=== PATIENT | female | born 2000 | race Two or more races ===

== ENCOUNTER 2024-11-27 19:57 | Emergency (ER) | payer MEDICAID, SELFPAY ==
[2024-11-27 20:17] VITALS: BP 130/89; PULSE 125; RESP 18; TEMP 38.7; O2SAT 99; BMI 40.2
--- NOTE | 2024-11-27 20:49 | EDNOTE_ITS ---
ED Fever RME/HPI General Chief Complaint: Fever Stated Complaint: FEVER, RUQ ABD PAIN, SOB, LIGHT HEADED Time Seen by Provider: 11/27/24 20:39 Arrival date/time: 11/27/24 19:57 RME / HPI RME / HPI Narrative: Dr. Patel?s Main ED Evaluation: 24yo female with a recent gastric sleeve on 11/23/24 at [facility] presents to the ED for complaints of epigastric pain and fever. Patient states she's been having sharp epigastric pain that radiates to her RUQ since yesterday. Patient states she developed a fever and chills yesterday, reporting she felt generally weak today, so she came in for evaluation. Patient denies any UTI symptoms, diarrhea, constipation, N/V or any other associated symptoms. Related Data Allergies Allergy/AdvReac Type Severity Reaction Status Date / Time morphine Allergy Verified 11/27/24 20:05 Review of Systems Review of Systems Systems Reviewed: All systems reviewed, normal except as documented Physical Exam Narrative Physical exam: GENERAL APPEARANCE: alert and oriented x 4, well-developed, well-nourished, no acute distress VITALS: All vitals were reviewed and the pulse ox is 99% on room air, which is normal according to my interpretation. HEENT: Normocephalic, atraumatic; pupils equal, round, reactive to light; EOMI; mucous membranes pink, moist; oropharynx clear NECK: Supple LUNGS: CTABL; no wheezes, no rales, no rhonchi HEART: Regular rate, regular rhythm; normal S1, S2; no murmurs ABDOMEN: non distended; normal BS; soft, RUQ tenderness, no guarding, no rebound; no masses, no organomegaly, no hernia BACK: no CVA tenderness EXTREMITIES: atraumatic; no edema NEUROLOGIC: awake; alert and oriented x4; cranial nerves II-XII grossly intact; no focal sensory or motor deficits PSYCHIATRIC: appropriate mood and affect SKIN: warm, dry, normal color; no rashes; multiple 1 cm abdominal surgical scars that are healing with minimal surrounding ecchymosis, no drainage or erythema noted Course Course Course Narrative: 2053: Sepsis alert initiated. Orders made at this time are congruent with ED Adult Sepsis Order List. Re-evaluation is to be completed. 2135: NS IVF started. 40: Sepsis reassessment performed consisting of lab review, vitals, physical exam including auscultation of heart, lungs, and visual evaluation of capillary refills, mucosal membranes and extremities. Patient met SIRS criteria however lactic, WBC, and pro mansoor are all within normal range. Reassessment complete, patient is not septic. Quality Measures Possible source: GI tract/intra-abdominal Blood cultures ordered: yes Antibiotic ordered: Yes Pertinent labs: 11/27/24 21:06 Lactic Acid 1.0 mMol/L (0.4-2.0) Procalcitonin 0.08 ng/ml (0.0-0.49) sepsis Orders Category Date Time Status Bedside COVID-19 Antigen Test NOW Care 11/28/24 00:54 Completed Bedside Influenza A&B Antigen Test NOW Care 11/28/24 00:[address] Screening NOW Care 11/27/24 20:[address] abdomen pelvis w con Stat Exams 11/27/24 20:50 Completed US abdomen limited Stat Exams 11/27/24 20:50 Completed Blood Culture (Lab) Stat Lab 11/27/24 21:12 Received CBC Stat Lab 11/27/24 21:06 Completed Comprehensive Metabolic Panel Stat Lab 11/27/24 21:06 Completed Lactate (Lactic Acid) Stat Lab 11/27/24 21:06 Completed Lipase Stat Lab 11/27/24 21:06 Completed Magnesium Stat Lab 11/27/24 21:06 Completed Procalcitonin Stat Lab 11/27/24 21:06 Completed Urinalysis Stat Lab 11/27/24 23:42 Completed Urine Culture Stat Lab 11/27/24 20:50 Received Acetaminophen Tab [Tylenol ES Tab] Med 11/27/24 20:55 Discontinued 1,000 mg PO X1 ONE Piper/Tazo 3.375 gm Premix [Zosyn] Med 11/27/24 20:53 Discontinued 3.375 gm in 50 ml IV X1 Sodium Chloride 0.9% 1000 ml [Ns] 1,000 ml Med 11/27/24 20:55 Discontinued IV 999 mls/hr Reevaluation(s) Reevaluation #1: Discussed results with the patient at bedside. Patient states she does not have a follow-up appointment with her surgeon until 12/04/24. I gave the patient strict return precautions and she verbalized understanding. Patient is stable to be discharged home. Time: 00:51 Vital Signs Vital signs: Vital Signs Temperature 101.6 F H 11/27/24 20:17 Pulse Rate 125 H 11/27/24 20:17 Respiratory Rate 18 11/27/24 20:17 Blood Pressure 130/89 H 11/27/24 20:17 Pulse Oximetry (%) 99 11/27/24 20:17 Oxygen Delivery Method Room Air 11/27/24 20:17 Fever MDM Narrative MDM Narrative:: Scribe Attestation: 11/27/24 - Susy Serra am scribing for and in the presence of Dr. Patel. Patient data External records reviewed:: [facility] previous records (Per chart review, patient has no previous ED visits or admissions to this facility.) Clinical information provided by:: patient Social determinants that could affect healthcare access:: none Patient has the following chronic illnesses:: none How is presenting disease/condition affected by chronic disease/condition?: no chronic disease Evaluation data The following diagnostics were reviewed and interpreted by me:: lab results and radiology exam(s) Lab and/or radiology exams considered but not ordered:: none Interpretation Summary: CBC is normal, Sodium is 134, Potassium is 3.3, Lactic Acid is normal, Procalcitonin is normal, Lipase is normal, UA is unremarkable, according to my interpretation. -------- [facility] Report Signed Patient: CLAYTON CH Record#: [id number] Birthdate: 2000 Age/Sex: 24 / F Location: [facility] Attending Dr: Ordering Physician: Ivy Patel MD Date of Service: 11/27/24 Procedure(s): CT abdomen pelvis w con Accession Number(s): [id number] cc: Mehrdad Mccracken MD; Ivy Patel MD~ Examination: CT abdomen with intravenous contrast CT pelvis with intravenous contrast 2-D coronal reconstructions 2-D sagittal reconstructions Date and time of exam:November 27, 2024 1015 hours INDICATIONS: Post gastric sleeve surgery one week ago, chills and fever one week. CTDI: vol (mGy) 16.2 DLP: (mGycm) 1020 Technique: Multiple axial sections of the abdomen and pelvis have been obtained. 64 slice high-resolution scanner used. 3 mm axial sections have been obtained, post intravenous injection 70 cc [id number] 2-D sagittal, coronal reconstructions obtained. Low dose protocols were performed. One or more of the following dose reduction techniques were used; automated exposure control, adjustment of the mA and/or KV according to patient size, use of iterative reconstruction technique. Findings: Pneumoperitoneum presumably postoperative Gastric sutures Mild inflammatory change about the stomach No perigastric hematoma or abscess No gallstones No pancreatic or adrenal mass No renal or ureteral calculi No abdominal or pelvic abscess 9 cm pelvic cystic mass No uterine mass Osseous structures intact IMPRESSION: Minimal pneumoperitoneum Mild likely postoperative inflammatory change about the stomach, no perigastric hematoma or abscess No renal or ureteral calculi No pericecal inflammatory change or bowel obstruction Large pelvic cyst, consider repeat pelvic sonography follow-up Dictated By: Mehrdad Mccracken MD Signed By: <Electronically signed by Mehrdad Mccracken MD in [place]> 11/27/24 8903 [facility] Report Signed Patient: CLAYTON WARNER Record#: [id number] Birthdate: 2000 Age/Sex: 24 / F Location: [facility] Attending Dr: Ordering Physician: Ivy Patel MD Date of Service: 11/27/24 Procedure(s): US abdomen limited Accession Number(s): [id number] cc: Franco Berry MD; Mehrdad Mccracken MD; Ivy Patel MD~ Examination: Abdomen sonogram, Limited Date and time of exam: November 27, 2024 1031 hours INDICATIONS: Right upper abdominal pain after gastric sleeve operation 5 days ago Technique: Real-time chandler scale transabdominal sonographic images of the upper abdomen obtained. Findings: Gallbladder sludge, gallstone Normal gallbladder wall Common bile duct 0.3 cm Pancreatic head 3.8 cm x 40 visualized Liver 17.3 cm fatty infiltration Normal hepatopedal portal venous flow Patent IVC IMPRESSION: Cholelithiasis, negative for cholecystitis Dictated By: Mehrdad Mccracken MD Signed By: <Electronically signed by Mehrdad Mccracken MD in OV> 11/27/24 2349 Medications / Prescriptions Medications or Prescriptions considered but not ordered:: none Medication administrations:: Medication Administration History Discontinued Medications Acetaminophen (Acetaminophen 500 Mg Tablet) 1,000 mg PO X1 ONE Stop: 11/27/24 20:56 Last Admin: 11/27/24 21:20 Dose: 1,000 mg Documented By: DANNA Piperacillin/Tazobactam/Dextrose (Zosyn) 3.375 gm in 50 mls @ 100 mls/hr IV X1 ONE Stop: 11/27/24 21:22 Last Infusion: 11/27/24 22:45 Dose: Infused Documented By: Admin: 11/27/24 21:37 Dose: 100 mls/hr Documented By: DANNA Sodium Chloride (Ns) 1,000 mls @ 999 mls/hr IV .Q1H1M ONE Stop: 11/27/24 21:55 Last Infusion: 11/28/24 00:11 Dose: Infused Documented By: Admin: 11/27/24 21:36 Dose: 999 mls/hr Documented By: DANNA see above Consultations Consultation(s) initiated? (list below): No Diagnosis Fever Differential Diagnosis: cellulitis and other (post surgical pain, abscess, perforation) Most likely diagnosis given after review of the tests above:: see clinical impression below Admission Indicated Admission indicated?: not indicated Admission Request Was there a request for admission?: No Disposition Plan Disposition Plan: Discharge Discharge Attestation Discharge Attestation: The patient and all family members were given an opportunity to ask questions and understood the discharge instructions. Discharge instructions specifically effects, indications for sooner follow up or return to the emergency department, and the expected course of current diagnosis. Patient condition: Stable Critical Care Time Critical Care Time Critical Care Time: Yes Total Critical Care Time (min.): 35 Attestation: The high probability of sudden, clinically significant deterioration in the patient?s condition required the highest level of my preparedness to intervene urgently. The services I provided to this patient were to treat and/or prevent clinically significant deterioration. Services included the following: chart data review, reviewing nursing notes and/or old charts, documentation time, professional services consultant collaboration regarding findings and treatment options, medication orders and management, direct patient care, vital sign assessments and ordering, interpreting and reviewing diagnostic studies and lab tests. Aggregate critical care time includes only time during which I was engaged in work directly related to the patient?s care, as described above, whether at bedside or elsewhere in the Emergency Department. It did not include time spent performing other reported procedures or the services of residents, students, nurses or physician assistants. Discharge Plan Plan Patient Disposition: HOME (Self Care) Prescriptions/Referrals Referrals: No Primary/Family,Physician [Referring Provider] - In 1 week Problem List Clinical Impression: Postoperative abdominal pain, Fever, Transaminitis Patient/Caregiver Discharge Instructions Education Materials: Managing Post-Op Pain at Home Print Language: Dutch Stand Alone Forms: María Award Info., Patient Portal Info Letter
[2024-11-27 21:20] VITALS: TEMP 38.7
[2024-11-27] MEDS: ACETAMINOPHEN 500 MG TABLET 1000 MG PO (21:20)
[2024-11-27 21:35] LABS: Basophils % (Auto) 0 % (0-2.5); Eosinophils % (Auto) 1 % (0-10); Hematocrit 34.1 % (36.0-46.0); Hemoglobin 11.9 g/dL (12.0-16.0); Immature Granulocytes % (Auto) 0 % (0-0); Immature Granulocytes Auto 0.01 Thou/mm3 (0.00-0.00); Lymphocytes # (Auto) 1.2 Thou/mm3 (1.0-4.8); Lymphocytes % (Auto) 22 % (10-50); Mean Corpuscular HGB Conc 34.9 g/dl (31.0-37.0); Mean Corpuscular Hemoglobin 29.3 pg (25.0-35.0); Mean Corpuscular Volume 84 fL (80-100); Monocytes # (Auto) 0.4 Thou/mm3 (0.0-0.8); Monocytes % (Auto) 8 % (0-12); Neutrophils # (Auto) 3.8 Thou/mm3 (1.8-7.7); Neutrophils % (Auto) 69 % (37-80); Nucleated Red Blood Cell % 0 /100 WBC (0); Platelet Count 221 Thou/mm3 (140-440); RDW Standard Deviation 43.5 fL (36.4-46.3); Red Blood Count 4.06 Miln/mm3 (4.00-5.20); White Blood Count 5.5 Thou/mm3 (3.6-11.0)
[2024-11-27] MEDS: SODIUM CHLORIDE 0.9% 1000 ML 1,000 ML 999 ML IV (21:36)
[2024-11-27] MEDS: PIPER/TAZO 3.375 GM PREMIX 3.375 GM/50 ML BAG IV (21:37)
[2024-11-27 21:54] LABS: Alanine Aminotransferase 180 U/L (10-49); Albumin, Serum 4.6 gm/dL (3.5-5.0); Albumin/Globulin Ratio 1.5 (1.2-2.2); Alkaline Phosphatase 90 U/L (46-116); Anion Gap 8 (7-16); Aspartate Amino Transferase 143 U/L (0-34); BUN/Creatinine Ratio 20 Ratio (12-20); Bilirubin,Total 1.4 mg/dL (0.3-1.2); Blood Urea Nitrogen 12 mg/dL (9-23); Calcium 9.4 mg/dL (8.3-10.6); Calcium (Corrected) 9.4 mg/dL (8.5-10.1); Carbon Dioxide 27.2 mMol/L (20.0-31.0); Chloride 99 mMol/L (98-107); Creatinine (Component) 0.6 mg/dL (0.6-1.3); Estimated Creatinine Clearance 176.7 mL/min (>60); Glucose 99 mg/dL (74-106); Lipase 40 U/L (12-53); Magnesium 1.7 mg/dL (1.6-2.6); Osmolality,Calculated 267 (275-295); Potassium 3.3 mMol/L (3.4-5.1); Procalcitonin 0.08 ng/ml (0.0-0.49); Sodium 134 mMol/L (136-145); Total Protein 7.6 gm/dL (5.7-8.2); eGFR > 60 See Note
[2024-11-27 22:45] VITALS: TEMP 37.2
[2024-11-27 23:33] VITALS: BP 146/90; PULSE 107; RESP 17; TEMP 37.2; O2SAT 99
[2024-11-27 23:49] LABS: Collection Type, Urine Clean Catch
[2024-11-28 00:15] LABS: Bilirubin,Urine Negative (Negative); Blood,Urine 1+ (Negative); Clarity,Urine Clear (Clear/Hazy); Color,Urine Yellow (Lt Yel-Yel); Glucose, Urine Negative (Negative); Ketones,Urine 3+ (Negative); Leukocyte Esterase,Urine Negative (Negative); Nitrite,Urine Negative (Negative); PH,Urine 6.5 (5.0-7.0); Protein,Urine Trace (Neg - Trace); RBC,Urine 24 /hpf (0-3); Squamous Epithelial Cell,Urine 3 /hpf (0-5); WBC,Urine 2 /hpf (0-5)
[2024-11-28 01:19] VITALS: BP 114/79; PULSE 100; RESP 18; O2SAT 97
== END 2024-11-28 01:21 | disposition home or self-care (01) ==
PROVIDERS: Emergency Provider Emergency Medicine; PCP Family Medicine
DX: G89.18 Other acute postprocedural pain (principal); R74.01 Elevation of levels of liver transaminase levels; K80.20 Calculus of gallbladder without cholecystitis without obstruction; Z98.84 Bariatric surgery status
CPT/HCPCS: 36415; 74177; 76705; 80053; 81001; 83605; 83690; 83735; 84145; 85025; 87040; 87086; 96361; 96365; 99285; A4649; J2543; J7030; Q9967; A9270